=== PATIENT | female | born 1970 | race Caucasian/White ===

== ENCOUNTER 2023-02-08 12:05 | Emergency (ER) | payer OTHER, SELFPAY ==
--- NOTE | 2023-02-08 12:11 | ED.FEMALEGU ---
HPI - Female Genitourinary General Chief complaint: Urogenital-Female Stated complaint: Poss UTI Time Seen by Provider: 02/08/23 12:11 Source: patient and RN notes reviewed History of Present Illness HPI Narrative: Patient is a 52-year-old female to urgent care with complaints of possibly UTI due to dysuria, suprapubic pressure, urgency, frequency. Patient states it started 3 weeks ago and she took 10 days of doxycycline. Patient states that she. Doxy 3 days ago but she has been taking azo. Denies any fevers, nausea or vomiting. Patient states she has had an increase in the symptoms since placed on the Jardiance. States her blood sugars have been within normal limits. No other acute complaints. No acute distress noted. Patient aware of the plan of care. Some parts of this dictation were generated by voice recognition software and may contain typographical and/or grammatical inaccuracies. Related Data Allergies Allergy/AdvReac Type Severity Reaction Status Date / Time erythromycin base Allergy Severe Hives Verified 02/08/23 12:18 Review of Systems Review of Systems: CONSTITUTIONAL: Denies fever, chills, or sweats. EYES: Denies visual changes, redness, or discharge. ENT: Denies rhinorrhea, congestion, sore throat, or otalgia. CARDIOVASCULAR: Denies chest pain, palpitations, or edema. RESPIRATORY: Denies cough or dyspnea. GASTROINTESTINAL: Denies abdominal pain, nausea, vomiting, or diarrhea. GENITOURINARY: Of dysuria, urinary frequency, urgency and suprapubic pressure SKIN: Denies rash or itching. MUSCULOSKELETAL: Denies back pain, joint pain, or myalgia. NEUROLOGIC: Denies headache, numbness, or weakness. All other systems reviewed are negative, except as documented in HPI. PMFSH Comments At the time of my signature, I reviewed and agree with the nursing past medical, surgical, social, and family history. There is no relevant family history pertinent to the patient complaint. Exam Narrative: GENERAL: This is a well-nourished, well-developed patient, in no apparent distress. HEAD: normocephalic, atraumatic. EYES: PERRL. Sclera clear/white. Vision is grossly intact. EARS: External ears normal NOSE: External nose normal with no obvious nasal discharge, nares without redness, no rhinorrhea. THROAT: Mucous membranes moist NECK: Neck supple GASTROINTESTINAL: Abdomen soft, non-tender, nondistended. Bowel sounds are active. No guarding. SKIN: warm, intact with no suspicious lesions or rash, good texture and turgor. NEURO: awake, alert, and oriented to person, place and time. There were no obvious focal neurologic abnormalities. EXTREMITIES: No clubbing, cyanosis, or edema. BACK: Negative bilateral CVA tenderness Course Course Level of Care: Express Care Visit Vital Signs Vital signs: Vital Signs Temperature 98.8 F 02/08/23 12:12 Pulse Rate 89 02/08/23 12:12 Respiratory Rate 20 02/08/23 12:12 Blood Pressure 161/77 H 02/08/23 12:12 Pulse Oximetry 98 02/08/23 12:12 Oxygen Delivery Room Air 02/08/23 12:12 Temperature 98.8 F 02/08/23 12:12 Pulse Rate 89 02/08/23 12:12 Respiratory Rate 20 02/08/23 12:12 Blood Pressure 161/77 H 02/08/23 12:12 Pulse Oximetry 98 02/08/23 12:12 Oxygen Delivery Room Air 02/08/23 12:12 Reviewed- Patient is informed that they may have pre-hypertension or hypertension based on a blood pressure reading in the department. I recommend the patient call the primary care provider listed on their discharge instructions or a physician of their choice this week to arrange follow-up for further evaluation of possible pre-hypertension or hypertension. MDM - Female Genitourinary MDM Narrative Medical decision making narrative: Reviewed lab results with patient. She is aware that urinalysis does not appear to be indicative of urinary tract infection however due to history and symptoms, will treat for possibility until culture is received. Advised patient to call i
[2023-02-08 12:12] VITALS: BP 161/77; PULSE 89; RESP 20; TEMP 37.1; O2SAT 98
[2023-02-08 13:01] VITALS: BP 161/77; PULSE 89; RESP 20; TEMP 37.1; O2SAT 98
== END 2023-02-08 12:54 | disposition home or self-care (01) ==
PROVIDERS: Emergency Provider Nurse Practitioner Family; PCP Family Medicine
DX: N39.0 Urinary tract infection, site not specified (principal)
CPT/HCPCS: 81003; 87077; 87086; 87186; 99203; G0463

== ENCOUNTER 2023-07-09 14:07 | Emergency (ER) | payer OTHER, SELFPAY ==
[2023-07-09 14:15] VITALS: BP 142/65; PULSE 97; RESP 16; TEMP 36.3; O2SAT 98
--- NOTE | 2023-07-09 14:16 | ED.FEMALEGU ---
HPI - Female Genitourinary General Chief complaint: Urogenital-Female Stated complaint: Poss UTI Time Seen by Provider: 07/09/23 14:17 Source: patient Mode of arrival: ambulatory Limitations: no limitations History of Present Illness HPI Narrative: Ginna is a 52-year-old female patient presenting to the clinic today with complaints of a possible urinary tract infection. She reports she is having burning, frequency, and urgency that started this morning. Patient took Azo for her symptoms. She is also reporting that she is having a slightly productive cough and mild shortness breath for the past 4-5 days. She is concerned that she may have bronchitis. States she has been wheezing at nighttime. Related Data Home Medications Medication Instructions Recorded Confirmed empagliflozin 10 mg tablet 10 mg PO DAILY 02/08/23 07/09/23 (Jardiance) gabapentin 300 mg capsule 300 mg PO TID 02/08/23 07/09/23 insulin glargine 100 unit/mL (3 60 unit subcut DAILY 02/08/23 07/09/23 mL) subcutaneous pen (Basaglar KwikPen U-100 Insulin) insulin lispro 100 unit/mL 40 unit subcut DAILY 02/08/23 07/09/23 subcutaneous pen losartan 25 mg tablet 25 mg PO DAILY 02/08/23 07/09/23 dulaglutide 0.75 mg/0.5 mL 0.75 mg subcut WEEKLY 07/09/23 07/09/23 subcutaneous pen injector (Trulicity) ezetimibe 10 mg tablet 10 mg PO DAILY 07/09/23 07/09/23 levothyroxine 125 mcg capsule 125 mcg PO DAILY 07/09/23 07/09/23 Allergies Allergy/AdvReac Type Severity Reaction Status Date / Time erythromycin base Allergy Severe Hives Verified 07/09/23 14:22 Review of Systems Review of Systems: Pertinent positives per HPI. Patient denies any fever, chills, rash, headache, visual changes, dizziness, cough, runny nose, sore throat, shortness of breath, chest pain, palpitations, nausea, vomiting, diarrhea, constipation, abdominal pain. PMFSH Comments At the time of my signature, I reviewed and agree with the nursing past medical, surgical, social, and family history. There is no relevant family history pertinent to the patient complaint. Exam Narrative: General: Well-developed, morbidly obese, in no apparent distress. Head: Normocephalic, atraumatic. Cardio: Regular rate and rhythm, s1 and s2 normal, no murmur appreciated. Resp: Faint wheezing, no rhonchi, rales, or rubs. Abdomen: Soft, pliable, bowel sounds present in all quadrants, tender to palpation over the bladder, no organomegly, no CVAT tenderness. Course Course Emergency Course: Portions of this record may have been created with voice recognition software. Level of Care: Express Care Visit Vital Signs Vital signs: Vital Signs Temperature 36.3 C L 07/09/23 14:15 Pulse Rate 97 07/09/23 14:15 Respiratory Rate 16 07/09/23 14:15 Blood Pressure 142/65 H 07/09/23 14:15 Pulse Oximetry 98 07/09/23 14:15 Oxygen Delivery Room Air 07/09/23 14:15 Temperature 36.3 C L 07/09/23 14:15 Pulse Rate 97 07/09/23 14:15 Respiratory Rate 16 07/09/23 14:15 Blood Pressure 142/65 H 07/09/23 14:15 Pulse Oximetry 98 07/09/23 14:15 Oxygen Delivery Room Air 07/09/23 14:15 Vital signs reviewed MDM - Female Genitourinary MDM Narrative Medical decision making narrative: At the time of visit patient is resting comfortably on the exam table. Patient took azo so her urinalysis is skewed. We will send for culture. Will place the patient on a prescription for Augmentin and prednisone-to cover urine bronchitis. Supportive measures were discussed with the patient she voiced understanding discharge instructions agrees to treatment plan. Differential Diagnosis Differential diagnosis: Likely urinary tract infection, cystitis and other (Cough, bronchitis, pneumonia) Lab Data Labs: Urine Glucose 2+ Reference Range: Negative Urine Bilirubin Negative
== END 2023-07-09 14:33 | disposition home or self-care (01) ==
PROVIDERS: Emergency Provider Nurse Practitioner Family; PCP Family Medicine
DX: N39.0 Urinary tract infection, site not specified (principal); J40 Bronchitis, not specified as acute or chronic; B96.4 Proteus (mirabilis) (morganii) as the cause of diseases classified elsewhere; E78.00 Pure hypercholesterolemia, unspecified; I10 Essential (primary) hypertension; E03.9 Hypothyroidism, unspecified; E11.40 Type 2 diabetes mellitus with diabetic neuropathy, unspecified; Z86.711 Personal history of pulmonary embolism
CPT/HCPCS: 81003; 87077; 87086; 87186; 99213; G0463

== ENCOUNTER 2024-01-29 12:40 | Emergency (ER) | payer OTHER, SELFPAY ==
[2024-01-29 12:46] VITALS: BP 196/92; PULSE 84; RESP 20; TEMP 37.1; O2SAT 100
--- NOTE | 2024-01-29 13:21 | ED.GENADULT ---
HPI - General Adult General Chief complaint: Urogenital-Female Stated complaint: Urinary Problem Time Seen by Provider: 01/29/24 13:21 Source: patient, RN notes reviewed and old records reviewed Mode of arrival: ambulatory Limitations: no limitations History of Present Illness HPI narrative: 53-year-old female presents to Express Care for urinary frequency, urgency, lower abdominal pressure or malodorous urine intermittently over last month. Patient endorses she was seen by her childhood teacher 1 month ago and had an order sent for a urinalysis that she did not complete. Patient denies vaginal discharge or concern for STI. Patient denies flank pain, fevers, abd pain. History of DM Related Data Home Medications Medication Instructions Recorded Confirmed empagliflozin 10 mg tablet 10 mg PO DAILY 02/08/23 07/09/23 (Jardiance) gabapentin 300 mg capsule 300 mg PO TID 02/08/23 07/09/23 insulin glargine 100 unit/mL (3 60 unit subcut DAILY 02/08/23 07/09/23 mL) subcutaneous pen (Basaglar KwikPen U-100 Insulin) insulin lispro 100 unit/mL 40 unit subcut DAILY 02/08/23 07/09/23 subcutaneous pen losartan 25 mg tablet 25 mg PO DAILY 02/08/23 07/09/23 dulaglutide 0.75 mg/0.5 mL 0.75 mg subcut WEEKLY 07/09/23 07/09/23 subcutaneous pen injector (Trulicity) ezetimibe 10 mg tablet 10 mg PO DAILY 07/09/23 07/09/23 levothyroxine 125 mcg capsule 125 mcg PO DAILY 07/09/23 07/09/23 Allergies Allergy/AdvReac Type Severity Reaction Status Date / Time erythromycin base Allergy Severe Hives Verified 07/09/23 14:22 Review of Systems Review of Systems: All systems reviewed & are unremarkable except as noted in HPI and below Constitutional: Constitutional: Reports no additional constitutional complaints Eyes: Eyes: Reports no additional eye complaints ENT: Reports system reviewed and no additional complaints, except as documented Cardiovascular: Cardiovascular: Reports no additional cardiovascular complaints, Denies chest pain and Denies dyspnea Respiratory: Respiratory: Reports no additional respiratory complaints, Denies cough and Denies dyspnea Genitourinary: Genitourinary: Denies hematuria, Reports post void dribbling, Reports nocturia, Reports dysuria, Reports pelvic pain, Reports urinary incontinence, Reports urinary hesitancy, Reports urinary urgency, Denies vaginal discharge, Denies vaginal dryness, Denies vaginal odor and Denies vaginal pruritus Musculoskeletal: Musculoskeletal: Reports no additional musculoskeletal complaints Neurologic: Reports system reviewed and no additional complaints, except as documented Psychiatric: Psychiatric: Reports no additional psychiatric complaints PMFSH Comments At the time of my signature, I reviewed and agree with the nursing past medical, surgical, social, and family history. There is no relevant family history pertinent to the patient complaint. Exam Const: General: cooperative, healthy appearing, comfortable, no acute distress, alert and well nourished Nutritional Appearance: well nourished Orientation/consciousness: patient oriented x3 Limitations: no limitations HENMT: Head: normal to inspection Ears: external ears normal Face/Nose/Sinus: Normal external nose present, Normal nares present, normal facial exam, No erythema and No edema Face and sinus: normal facial exam, no erythema and no edema Mouth: Yes Normal oral and palatal mucosa present Eyes: General: appearance normal, both eyes and all related structures Neck: Neck: normal visual inspection, full ROM and no meningeal signs Lymphatic: no lymphadenopathy noted and no lymphedema noted Chest: Chest palpation & inspection: normal inspection of the chest Resp: Effort & Inspection: normal respiratory effort and able to speak in complete sentences Auscultation: clear to auscultation bilaterally Cardio: Jugular venous distension: no JVD Rate: regular rate Rhythm: regular rhythm GI: GI Palp: No abdominal t
== END 2024-01-29 13:42 | disposition home or self-care (01) ==
PROVIDERS: Emergency Provider Nurse Practitioner Family; PCP Family Medicine
DX: R81 Glycosuria (principal); E11.40 Type 2 diabetes mellitus with diabetic neuropathy, unspecified; Z79.4 Long term (current) use of insulin; E78.00 Pure hypercholesterolemia, unspecified; I10 Essential (primary) hypertension; E03.9 Hypothyroidism, unspecified
CPT/HCPCS: 81003; 87086; 87088; 99213; G0463